=== PATIENT | female | born 1950 | race Caucasian/White ===

== ENCOUNTER → 2016-10-26 | Outpatient (CLI) | payer OTHER ==
[~2016-10-26] MED LIST: GADOBUTROL 10 ML VIAL IVP ONE
== END ==
LOC: FIMAGING 09:24
PROVIDERS: ATTEND Physician Assistant
DX: Z12.89 Encounter for screening for malignant neoplasm of other sites (principal); Z80.3 Family history of malignant neoplasm of breast
CPT/HCPCS: 74183; A9585

== ENCOUNTER 2016-11-02 06:22 | Day surgery (SDC) | payer OTHER ==
[2016-11-02] MEDS ORDERED: LR 1,000 ML IV ONE (06:35)
[2016-11-02] MEDS ORDERED: LIDOCAINE 1% 2 ML INJ ID PRN (06:35)
--- NOTE | 2016-11-02 06:57 | PDANEPAE ---
ANE History of Present Illness 66 yo F here for EUS/EGD ANE Past Medical History - Cardiovascular History Hx Hypertension: Yes Hx Arrhythmias: No Hx Chest Pain: No Hx Coronary Artery / Peripheral Vascular Disease: No Hx CHF / Valvular Disease: No Hx Palpitations: No Cardiovascular History Comment: hyperlipidemia - Pulmonary History Hx COPD: No Hx Asthma/Reactive Airway Disease: No Hx Recent Upper Respiratory Infection: No Hx Oxygen in Use at Home: No Hx Sleep Apnea: No Sleep Apnea Screening Result - Last Documented: Negative - Neurologic History Hx Cerebrovascular Accident: No Hx Seizures: No Hx Dementia: No - Endocrine History Hx Diabetes: No Endocrine History Comment: hypothyroidism - Renal History Hx Renal Disorders: No - Liver History Hx Hepatic Disorders: No - Neurological & Psychiatric Hx Hx Neurological and Psychiatric Disorders: No - Cancer History Hx Cancer: No - Congenital Disorder History Hx Congenital Disorders: No - GI History Hx Gastrointestinal Disorders: No - Other Health History Other Health History: wears glasses - Chronic Pain History Chronic Pain: No - Surgical History Prior Surgeries: 10/08/15 Right TKA with [place]. MENISCUS REPAIR L KNEE 2006. RTC R SHOULDER 2010. C SECTION ANE Review of Systems Review of Systems: - Exercise capacity METS (RN): 5 METS ANE Patient History - Allergies Allergies/Adverse Reactions: No Known Allergies Allergy (Verified 09/28/16 11:09) - Home Medications Home Medications: Metoprolol Tartrate [Lopressor 25 mg (*)] 09/15/15 [Last Taken 11/02/16 05:30] Aspirin EC 81 mg (*) 09/28/16 [Last Taken 10/26/16] Herbals/Supplements -Info Only 09/28/16 [Last Taken 10/26/16] - NPO status NPO Since - Liquids (Date): 11/01/16 NPO Since - Liquids (Time): 22:00 NPO Since - Solids (Date): 11/01/16 NPO Since - Solids (Time): 22:00 - Anes Hx Anes Hx: no prior problems - Smoking Hx Smoking Status: Never smoked - Alcohol Use Alcohol Use: Occasionally - Family Anes Hx Family Anes Hx: none Family Hx Anesthesia Complications: none ANE Labs/Vital Signs - Vital Signs Height: 160.02 cm Weight: 67.132 kg ANE Physical Exam - Airway Neck exam: FROM Mallampati Score: Class 2 Mouth exam: normal dental/mouth exam - Pulmonary Pulmonary: no respiratory distress, clear to auscultation - Cardiovascular Cardiovascular: regular rate and rhythym, no murmur, rub, or gallop - ASA Status ASA Status: II ANE Anesthesia Plan Anesthesia Plan: GA with mask Total IV Anesthesia: Yes
--- NOTE | 2016-11-02 06:57 | PDGENHP ---
History & Physical Chief Complaint: Screening for pancreatic cancer Relevant Physical Exam: GEN: NAD. Cardiac: RRR. Lungs: CTA B. Abd: Soft, nt, nd
[2016-11-02 07:02] VITALS: PULSE 55; TEMP 97.7
[2016-11-02] MEDS ORDERED: PROPOFOL/EMULSION 500 MG/50 ML BOTTLE IV ONE (07:18)
[2016-11-02] MEDS ORDERED: NALOXONE HCL 0.4 MG/ML INJ IVP PRN (07:26)
[2016-11-02] MEDS ORDERED: ACETAMINOPHEN 500 MG TAB PO PRN (07:26)
[2016-11-02] MEDS ORDERED: ONDANSETRON 4 MG/2 ML VIAL IVP PRN (07:26)
--- NOTE | 2016-11-02 08:15 | GIREPORT ---
[facility] Surgical Services - Endoscopy Department Patient Name: Zaina Lazo Procedure Date: 11/02/2016 7:32 AM Patient Type: Outpatient Attending / MARIANNE Physician: Afshin Nunez MD Procedure: Upper EUS Indications: Screening for pancreatic neoplasm. Family history. Providers: Afshin Nunez MD Medicines: Monitored Anesthesia Care Complications: No immediate complications. Findings: Endoscopic Finding : LA Grade A (one or more mucosal breaks less than 5 mm, not extending be tween tops of 2 mucosal folds) esophagitis with no bleeding was found 35 cm f rom the incisors. Biopsies were taken with a cold forceps for histology. Verification of patient identification for the specimen was done by the physician and nurse using the patient's name and date. Estimated blood loss was minimal. A small hiatal hernia was present. Localized mild inflammation characterized by erosions, erythema and friability was found in the gastric antrum. Biopsies were taken with a cold forceps for histology. Verification of patient identification for the specimen was done by the physician and nurse using the patient's name a nd date. Estimated blood loss was minimal. The examined duodenum was normal. Endosonographic Finding : The esophagus, stomach and duodenum were visualized endosonographically . There was no sign of significant endosonographic abnormality in the pancreatic head, in the genu of the pancreas, in the pancreatic body, i n the pancreatic tail, in the uncinate process of the pancreas, in the peripancreatic region, in the pancreatic neck, in the main pancreatic d uct and in the ampulla. The pancreas was well visualized, no pathologic lymphadenopathy, no masses, no cysts, no calcifications, the pancreatic duct was well visualized from ampulla to tail, the pancreatic duct was thin in caliber, the pancreatic duct was regular in contour. There was no sign of significant endosonographic abnormality in the com mon bile duct. There was no sign of significant endosonographic abnormality in the gallbladder. Estimated Blood Loss: Estimated blood loss: none. Post Op Diagnosis: - LA Grade A reflux esophagitis. Biopsied. - Small hiatal hernia. - Gastritis. Biopsied. - Normal examined duodenum. - There was no sign of significant pathology in the pancreatic head, in the genu of the pancreas, in the pancreatic body, in the pancreatic tail, i n the uncinate process of the pancreas, in the peripancreatic region, in the pancreatic neck and in the main pancreatic duct. - There was no sign of significant pathology in the common bile duct. - There was no sign of significant pathology in the gallbladder. Recommendation: - Discharge patient to home (with escort). - Resume previous diet. - Use Prilosec (omeprazole) 20 mg PO daily. - Avoid NSAIDS. - Repeat surveillance imaging with MRCP and EUS every other year for fa zay of pancreatic cancer and increased risk. - Await path results. Results are available within 10 days. - Thank you for allowing me to participate in the care of your patient. Attending Participation: I personally performed the entire procedure. Afshin Nunez MD Afshin Nunez MD 11/02/2016 8:14:56 AM Number of Addenda: 0 Note Initiated On: 11/02/2016 7:32 AM [email or web address]
[2016-11-02 08:28] VITALS: RESP 13
[2016-11-02 09:49] VITALS: BP 154/76; O2SAT 95
--- NOTE | 2016-11-02 13:06 | POSTANESTH ---
Post Anesthetic Evaluation Cardiovascular Status: Normal, Stable, Similar to Pre-Op Cond Respiratory Status: Normal, Stable, Similar to Pre-op Cond. Level of Consciousness/Mental Status: Can Participate in Eval, Alert and Oriented Pain Control: Adequate, Prn Tx Ordered Nausea/Vomiting Control: Adequate, Prn Tx Ordered Complications Possibly Related to Anesthesia: None Noted
== END 2016-11-02 09:25 | disposition home or self-care (01) ==
LOC: FSGY 06:22
PROVIDERS: ATTEND Internal Medicine Gastroenterology
PROC: 0DB68ZX Excision of Stomach, Via Natural or Artificial Opening Endoscopic, Diagnostic (ICD-10-PCS; principal; 2016-11-02 07:30)
PROC: 0DB48ZX Excision of Esophagogastric Junction, Via Natural or Artificial Opening Endoscopic, Diagnostic (ICD-10-PCS; principal; 2016-11-02 07:30)
DX: Z12.89 Encounter for screening for malignant neoplasm of other sites (principal)
CPT/HCPCS: J2704

== ENCOUNTER → 2016-12-29 | Outpatient (CLI) | payer OTHER | LOC: FIMAGING 15:27 | PROVIDERS: ATTEND Family Medicine | DX: Z12.31 Encounter for screening mammogram for malignant neoplasm of breast (principal) | CPT/HCPCS: G0202 ==

== ENCOUNTER → 2017-08-09 | Outpatient (CLI) | payer OTHER | LOC: BHFA 09:15 | PROVIDERS: ATTEND Nurse Practitioner Adult Health | DX: I10 Essential (primary) hypertension (principal); E78.5 Hyperlipidemia, unspecified ==

== ENCOUNTER → 2017-12-13 | Outpatient (CLI) | payer OTHER | LOC: FIMAGING 06:15 | PROVIDERS: ATTEND Physician Assistant | DX: N28.1 Cyst of kidney, acquired (principal); Z80.0 Family history of malignant neoplasm of digestive organs | CPT/HCPCS: 74183; A9585; 82565-PO ==

== ENCOUNTER → 2018-01-24 | Outpatient (CLI) | payer OTHER | LOC: FIMAGING 08:39 | PROVIDERS: ATTEND Family Medicine | DX: Z12.31 Encounter for screening mammogram for malignant neoplasm of breast (principal) ==

== ENCOUNTER → 2018-05-10 | Outpatient (CLI) | payer OTHER | LOC: FIMAGING 15:26 | PROVIDERS: ATTEND Midwife | DX: R14.0 Abdominal distension (gaseous) (principal); D25.1 Intramural leiomyoma of uterus ==